=== PATIENT | female | born 1945 | race Caucasian/White ===

== ENCOUNTER 2021-01-14 10:38 | Inpatient (IN) | payer MEDICARE, BC ==
[~2021-01-14] VITALS: Ht 160 cm; Wt 110.0 kg
[~2021-01-14 10:38] MED LIST: ALTACE 1.25MG1.25 MG PO; ALTACE10 MG PO; AMBIEN 10MG10 MG PO; AMBIEN 5MG TABLE5 MG PO; BIRTH CONTROL; BUPROPION HCL75 MG PO; HCTZ12.5TAB PO; LASIX 20MG TABL20 MG PO; LIPITOR 10MG10 MG PO; LIPITOR20 MG PO; LORTAB 5/500 501 TAB PO; LORTAB 7.5/5001 TAB; MULTIPLE VITAMI1 TA5 PO; NEURONTIN100 MG/CAP PO; ONE DAILY1 TA2 PO; PHENERGAN 25 TA25 MG; PRILOSEC 20MG20 MG PO; PROMETHAZINE12.5 M5 PO; SENNA-LAX8.6 MG PO; SYNTHROID 0.0.025 MG PO; SYNTHROID0.05 MG/TA PO; TYLENOL 325MG325 MG PO; VICODIN PO; VITAMIN D; VITAMIN D2000 I1 PO; VOLTAREN SR25 MG/TAB PO; WELLBUTRIN 75MG75 MG PO
--- NOTE | 2021-01-17 15:24 | NUR ---
Report from [place] nurse. In anticipation of patietn arrival air matress applied to bed.
[2021-01-17 16:17] VITALS: BP 157/59; PULSE 80; TEMP 100.2
[2021-01-17] MEDS ORDERED: FISH OIL 500 M1 EAC1 PO (16:21)
[2021-01-17] MEDS ORDERED: CALCIUM CARBON650 M2 PO (16:23)
[2021-01-17] MEDS ORDERED: TUMS500 MG PO (16:28)
[2021-01-17] MEDS ORDERED: RIFADIN300 MG PO (16:29)
[2021-01-17] MEDS ORDERED: ISONIAZID PO (16:29)
[2021-01-17] MEDS ORDERED: RIFAMPIN PO (16:29)
[2021-01-17] MEDS ORDERED: SYNTHROID0.088 MG/T PO (16:31)
[2021-01-17] MEDS ORDERED: ESTRACE0.5 MG PO (16:31)
[2021-01-17] MEDS ORDERED: VTAMINC250TA (16:38)
[2021-01-17] MEDS ORDERED: VITAMIN D31000 IU PO (16:39)
[2021-01-17] MEDS ORDERED: MAG-OX 400400 MG/TAB PO (16:41)
[2021-01-17] MEDS ORDERED: B COMPLEX #11 TA1 PO (16:43)
[2021-01-17] MEDS ORDERED: NORVASC 10MG10 MG PO (16:44)
[2021-01-17] MEDS ORDERED: ASPIRIN 81M81 MG/TA2 PO (16:44)
[2021-01-17] MEDS ORDERED: PERCOCET 325 MG1 TA2 PO (16:45)
[2021-01-17] MEDS ORDERED: MIRALAX PA17 GM/Dose PO (16:46)
[2021-01-17] MEDS ORDERED: CUBICIN 500MG500 MG IV (16:47)
[2021-01-17] MEDS ORDERED: GENTEAL MILD 1515 M1 OP (16:55)
--- NOTE | 2021-01-17 17:00 | NUR ---
Patient is lying in bed, temperature is in the 100. Patient reports pain of 7 out of 10 in her right knee. No nausea or vomiting. Patient has multiple areas of redness and scaling in the skin foldings of the abdomen and groin. She has a pressure ulcer in the sacral area. She had a bowel movement in the morning. No other needs at the moment. Call ligth within reach.
[2021-01-17 19:28] VITALS: BP 146/56; PULSE 84; TEMP 99.7
[2021-01-17 19:45] LABS: URIC ACID 9.4 mg/dL (2.5-6.2)
[2021-01-17 20:02] LABS: THYROID STIMULATING HORMONE 2.17 uIU/mL (0.465-4.680)
--- NOTE | 2021-01-17 21:39 | NUR ---
pt reports feeling itchy on her back, no rash noted did give her percocet and antibotic tonight will call collette bustillos for orders. sukhjinder ordered. montoring, pt does deny soa or any other alergic reaction symptoms.
--- NOTE | 2021-01-17 23:38 | NUR ---
ALERT AND OX4. DENIES SOA, CHEST PAIN OR DIZZY. DID REPORT ITCHING TO BACK AFTER MED PASS. NO RASH OR MONIKA. DID STATE SHE IS VERY SENSITIVE TO NEW LAUDRY SOAPS. PM MEDS GIVEN ALONG PRNS.POC DISCUSSED WILL BE NPO AT MIDNIGHT. NEEDS MET
[2021-01-17 23:50] VITALS: BP 127/61; PULSE 63; TEMP 98.1
--- NOTE | 2021-01-18 00:40 | NUR ---
NO RASH NOTED, STATES BENEDRYL HELPED W ITCHING. NEEDS MET. RESTING W EYES CLOSED, RESP EVEN AND UNLABORED
[2021-01-18 01:05] LABS: COLLECTION METHOD IN
[2021-01-18 01:13] LABS: BUDDING YEAST Present /hpf; PH 6 (5-8); SQUAMOUS EPITHELIAL 0-2 /hpf; URINE APPEARANCE Cloudy; URINE BACTERIA Occasional /hpf; URINE BILIRUBIN Negative (NEGATIVE); URINE BLOOD 3+ (NEGATIVE); URINE COLOR Yellow; URINE GLUCOSE Negative (NEGATIVE); URINE KETONE Negative (NEGATIVE); URINE LEUKOCYTE ESTERASE 3+ (NEGATIVE); URINE NITRATE Negative (NEGATIVE); URINE PROTEIN(semi-quant) 2+ (NEGATIVE); URINE RBC >50 /hpf; URINE UROBILINOGEN Negative (NEGATIVE)
--- NOTE | 2021-01-18 02:57 | NUR ---
REPORTED URINE RESULTS TO [facility], WILL PLACE ORDERS.
[2021-01-18 04:21] VITALS: BP 158/60; PULSE 70; TEMP 98.6
--- NOTE | 2021-01-18 05:12 | NUR ---
NPO SINCE 12. ROCEPHIN FOR UTI STARTED. EXPLAINED NEW MED TO PT. NEEDS MET.
[2021-01-18 07:06] LABS: MEAN CELL VOLUME 96 fl (80.0-100.0); MEAN CORPUSCULAR HGB CONC 33 g/dl (33.0-37.0); MEAN PLATELET VOLUME 9.3 fl (7.4-10.4); PLATELET COUNT 253 K/mm3 (130-400); RED BLOOD COUNT 2.44 M/mm3 (4.10-5.30); REDCELL DISTRIBUTION WIDTH-CV 12.1 % (11.5-14.5)
[2021-01-18 07:11] LABS: HEMATOCRIT 23.4 % (37.0-47.0); HEMOGLOBIN 7.7 g/dl (12.5-16.0); MEAN CORPUSCULAR HEMOGLOBIN 32 pg (27.0-31.0)
[2021-01-18 07:21] LABS: CALCIUM 7.9 mg/dL (8.4-10.2); CREATININE, serum 1.85 (0.52-1.25); MAGNESIUM 3.4 mg/dL (1.6-2.3); POTASSIUM 4.4 mmol/L (3.4-5.0)
[2021-01-18 08:00] VITALS: BP 136/50; PULSE 69; TEMP 99.1
--- NOTE | 2021-01-18 08:00 | NUR ---
Patient is lying in bed, alert and oriented x 4, VS stable, pain reported as 7 or 8 our of a scale of 10. Oxicodone provided. No nausea or vomiting. Patient asks about food intake but NPO for possible surgery. No further needs at the moment. Call light within reach. .
[2021-01-18 08:06] LABS: BAND 4 % (0-10); EOSINOPHIL 10 % (0-4); LYMPHOCYTE 6 % (20.0-51.0); NEUTROPHILS 72 % (42.0-75.2); PLATELET ESTIMATE NORMAL (NORMAL)
--- NOTE | 2021-01-18 09:41 | NUR ---
SW attended clinical rounds. The patient's sodium is low. The hospitalist would like to hold off on surgery today. REGINALDO then met with the patient to discuss discharge plan. The patient transferred to our hospital from [facility]. She states that she has been there for around a week. Before SB, the patient was living alone in [place]. She states that all her family is in [place]. She reports that she was independent with ADLs before hospitalization and has a cane and walker. The patient's PCP is Dr. Mayra Dueñas and she receives her medications from [facility]. The patient does not have a DPOA-HC, but she reports that she does have one completed and that [facility] should have a copy of it. She reports that her friend, Verenice Jae (ph#[phone]), is her DPOA-HC. The patient states that she would like to return back to [facility] upon discharge. REGINALDO informed her of the different facilities around [place] and discussed having a second preference in case [facility] does not have a bed on day of d/c. The patient would prefer to stay in [place] and was open for REGINALDO to send referrals to the two other facilities in [place]. REGINALDO contacted and faxed updates to Gracie at [facility]. [facility] is aware that the patient would like to come back and they would like to see how the patient does after surgery. REGINALDO contacted and faxed referrals to [facility] and [facility]. Awaiting screens. REGINALDO contacted [facility] and requested a copy of the patient's DPOA-HC. REGINALDO received the DPOA-HC, via fax. REGINALDO placed the document in the patient's chart. The patient's DPOA-HC is Verenice Rowe. The alternate is her other friend, Isi Yao (ph#[phone]). REGINALDO attempted to contact and update Verenice. SW left her a voicemail. *Discharge plan: [facility] or SNF* attempted to contact and update the patient's friend
--- NOTE | 2021-01-18 10:00 | NUR ---
Patient is resting in bed, looks lethargic. Lasix was administered as prescribed. There is some blood in the castaneda catheter. Skin in the abdomen was cleaned and applied the medication.
--- NOTE | 2021-01-18 10:43 | NUR ---
NEPHROLOGY AT BEDSIDE, SEE ORDERS.
--- NOTE | 2021-01-18 11:28 | NUR ---
URINE COLLECTED AND SENT TO LAB PER ORDERS.
[2021-01-18 12:00] VITALS: BP 140/56; PULSE 69; TEMP 98.7
--- NOTE | 2021-01-18 12:44 | NUR ---
VISITED WITH AND SURGERY IS NOW PENDING THUR. SEE DIET ORDER.
[2021-01-18 15:39] VITALS: BP 124/52; PULSE 64; TEMP 98.8
[2021-01-18 16:24] LABS: CALCIUM 7.9 mg/dL (8.4-10.2); CREATININE, serum 1.92 (0.52-1.25); POTASSIUM 4.2 mmol/L (3.4-5.0)
[2021-01-18 16:31] LABS: FOLATE (FOLIC ACID) 16.4 ng/mL (2.0-20.0)
--- NOTE | 2021-01-18 17:20 | NUR ---
VIJAY AT BEDSIDE AND IS REQUESTING TO VISIT WITH ABOUT PLAN OF CARE. CAME DOWN AND VISITED WITH FRIEND, PER THE PATIENT'S REQUEST. PATIENT STATUS UPDATE GIVEN
[2021-01-18 17:36] LABS: PROCALCITONIN 0.31 ng/mL (0.00-0.09)
[2021-01-18 19:40] VITALS: BP 147/55; PULSE 82; TEMP 99.4
--- NOTE | 2021-01-18 23:09 | NUR ---
ALERT AND OX4. APPEARS TO BE MORE TIRED TONIGHT THAN LAST. PAIN IS CONTROLLED W PERCOCET. PM MEDS GIVEN. MANRIQUEZ CATH TO DD. JANN CARE, LOTION AND POWERED PER ORDER TO PANUS, EXCORATED AREAS. STAGE II TO BOTTOM, DSG C/D/I. POC DISCUSSED SURG POSSIBLY SUNDAY NOW.
[2021-01-18 23:46] VITALS: BP 146/70; PULSE 69; TEMP 99.9
[2021-01-19 04:27] VITALS: BP 149/57; PULSE 70; TEMP 100.1
--- NOTE | 2021-01-19 05:41 | NUR ---
RESTED THROUGH THE NIGHT WITHOUT INCIDENT. AM LABS DRAW FROM PORT A CATH. LOW GRADE FEVER THIS AM. NEEDS MET.
--- NOTE | 2021-01-19 06:27 | NUR ---
PT MEDICATED THIS AM. REFUSES TO DRINK GATORADE, EXPLAINED ON FREE WATER FLUID RESTRICTION BUT STILL REFUSED.
[2021-01-19 06:41] LABS: MEAN CELL VOLUME 96 fl (80.0-100.0); MEAN CORPUSCULAR HGB CONC 32 g/dl (33.0-37.0); MEAN PLATELET VOLUME 9.3 fl (7.4-10.4); PLATELET COUNT 257 K/mm3 (130-400); RED BLOOD COUNT 2.46 M/mm3 (4.10-5.30); REDCELL DISTRIBUTION WIDTH-CV 12.1 % (11.5-14.5)
[2021-01-19 06:46] LABS: CALCIUM 8.1 mg/dL (8.4-10.2); CREATININE, serum 1.92 (0.52-1.25); PHOSPHOROUS 5.7 mg/dL (2.5-4.5); POTASSIUM 4.4 mmol/L (3.4-5.0)
[2021-01-19 06:47] LABS: HEMATOCRIT 23.6 % (37.0-47.0); HEMOGLOBIN 7.5 g/dl (12.5-16.0); MEAN CORPUSCULAR HEMOGLOBIN 30 pg (27.0-31.0)
[2021-01-19 07:58] LABS: BAND 5 % (0-10); BASOPHIL 1 % (0-2); EOSINOPHIL 7 % (0-4); LYMPHOCYTE 12 % (20.0-51.0); METAMYELOCYTE 2 % (0-0); NEUTROPHILS 71 % (42.0-75.2); PLATELET ESTIMATE NORMAL (NORMAL)
[2021-01-19 08:00] VITALS: BP 134/48; PULSE 74; TEMP 98.9
--- NOTE | 2021-01-19 08:00 | NUR ---
Patient is resting in bed after hygiend provide by [employer], vital signs stable, in 1.5 l of oxygen with nasal canula. Reports pain 8 out of 10 in her right knee. Patient is receiving medication according to orders. No nausea or vomiting. Refuse to eat breakfast. Lack of appetite. Continue with itching all around the body. Benadryl provided as requested. Patient reports dificulty to sleep. Dressing change in her pressure ulcer (allevine). Patient was repositioned. No further needs at the moment. Call light within reach.
[2021-01-19 11:36] VITALS: BP 152/72; PULSE 75; TEMP 99.5
--- NOTE | 2021-01-19 14:18 | NUR ---
REGINALDO faxed updates to [facility], [facility], and [facility].
[2021-01-19 16:00] VITALS: BP 150/51; PULSE 74; TEMP 98.8
--- NOTE | 2021-01-19 16:36 | NUR ---
Patient is resting in bed. Reports pain 8 out of 10. Percoset provided. No further needs right now. Call light within reach.
--- NOTE | 2021-01-19 17:35 | NUR ---
Pt has had minimal complaints throughout the day. She did not eat much, stated she does not have an appetite. She has refused us repositioning her. Pillows pushed under her as much as possible to try and get her weight off her bottom. Maria Elena area and groin cleaned and applied new desenex.
--- NOTE | 2021-01-19 19:30 | NUR ---
RECEIVED CHANGE OF SHIFT REPORT FROM DAY SHIFT NURSE. CONTACT ISOLATION CONTINUES. PATIENT RESTING WITH EYES CLOSED IN BED.
[2021-01-19 19:52] VITALS: BP 132/55; PULSE 69; TEMP 99.6
--- NOTE | 2021-01-19 20:00 | NUR ---
PATIENT REFUSES TO BE REPOSITIONED. MANRIQUEZ IN PLACE. PORTACATH ACCESSED WITH PORT FLUSHING WITH NO PROBLEMS. ON ROOM AIR. DENIES ANY NEEDS AT THIS TIME. NO ACTIVE MOVEMENT OF BLE BY PATIENT, ABLE TO MOVE BUE WITH NO PROBLEMS. HEEL BOOTS IN PLACE TO BOTH FEET.
[2021-01-20] VITALS (14 sets, daily range): BP systolic 133–157; BP diastolic 50–72; PULSE 71–80; TEMP 98.7–100.4
[2021-01-20 07:14] LABS: MEAN CELL VOLUME 95 fl (80.0-100.0); MEAN CORPUSCULAR HGB CONC 32 g/dl (33.0-37.0); MEAN PLATELET VOLUME 9.6 fl (7.4-10.4); PLATELET COUNT 264 K/mm3 (130-400); RED BLOOD COUNT 2.54 M/mm3 (4.10-5.30); REDCELL DISTRIBUTION WIDTH-CV 12.1 % (11.5-14.5)
[2021-01-20 07:15] LABS: HEMATOCRIT 24.2 % (37.0-47.0); HEMOGLOBIN 7.8 g/dl (12.5-16.0); MEAN CORPUSCULAR HEMOGLOBIN 31 pg (27.0-31.0)
[2021-01-20 07:24] LABS: CALCIUM 8.4 mg/dL (8.4-10.2); CREATININE, serum 1.89 (0.52-1.25); POTASSIUM 4.2 mmol/L (3.4-5.0)
[2021-01-20 07:52] LABS: BAND 5 % (0-10); EOSINOPHIL 8 % (0-4); LYMPHOCYTE 9 % (20.0-51.0); NEUTROPHILS 72 % (42.0-75.2); PLATELET ESTIMATE NORMAL (NORMAL)
--- NOTE | 2021-01-20 13:07 | NUR ---
Pt off the floor for surgery
[2021-01-20] MEDS ORDERED: PERCOCET 325 MG1 TA2 PO (14:29)
--- NOTE | 2021-01-20 16:17 | NUR ---
SW attended clinical rounds. The patient is to have surgery today and will then transfer to the ICU. The patient is to be here through the weekend. REGINALDO notified Gracie at [facility] and faxed updates to [facility], [facility], and [facility].
--- NOTE | 2021-01-20 17:04 | NUR ---
Pt continues to be off the floor in surgery
--- NOTE | 2021-01-20 17:34 | NUR ---
Pt just arrived back from [place]. She is alert and oriented. Has pain complaints in her right knee. She was recently given some IV pain medication in [place]. Pt does fall asleep after answering my questions. Call light within reach, will continue to monitor
--- NOTE | 2021-01-20 18:07 | NUR ---
Pt having complaints of pain, PRN given. Attempted to move patient to replace dressing on coccyx wound, but pt refused. Informed pt that we need to be able to reposition her and keep a dressing on her bottom so that it does not get worse. Pt stated that she knows, but that she is not moving right now. Pt also refusing anything to eat. VSS, call light within reach
--- NOTE | 2021-01-20 21:15 | NUR ---
Pt. laying in bed. Pt. is A&OX3,assessment complete. Central line to rt. sbuclavian. Pt. reports pain at a 8 on pain scale, gave pain meds per orders. castaneda catheter to DD, clear yellow urine noted. Dressing to RLE CDI ginger dressing and leg brace. Pt. denies further needs, call light within reach.
[2021-01-21] VITALS (12 sets, daily range): BP systolic 105–130; BP diastolic 41–56; PULSE 68–85; TEMP 98.2–102.6
--- NOTE | 2021-01-21 05:10 | NUR ---
Temp of 102.6 reported to this nurse from TRANSPORTATION COORDINATOR. Gave percocet d/t pt. also reports pain at a 5 on pain scale. MODESTA Johnson notified. No new orders at this time.
[2021-01-21 07:15] LABS: MEAN CELL VOLUME 95 fl (80.0-100.0); MEAN CORPUSCULAR HGB CONC 33 g/dl (33.0-37.0); MEAN PLATELET VOLUME 9.2 fl (7.4-10.4); PLATELET COUNT 263 K/mm3 (130-400); RED BLOOD COUNT 2.41 M/mm3 (4.10-5.30); REDCELL DISTRIBUTION WIDTH-CV 12.4 % (11.5-14.5)
[2021-01-21 07:19] LABS: HEMATOCRIT 22.9 % (37.0-47.0); HEMOGLOBIN 7.5 g/dl (12.5-16.0); MEAN CORPUSCULAR HEMOGLOBIN 31 pg (27.0-31.0)
[2021-01-21 07:35] LABS: CALCIUM 8.1 mg/dL (8.4-10.2); CREATININE, serum 2.2 (0.52-1.25); MAGNESIUM 3.2 mg/dL (1.6-2.3); POTASSIUM 4.8 mmol/L (3.4-5.0)
--- NOTE | 2021-01-21 10:48 | NUR ---
Headlight Assembler faxed clinical updates to [facility], [facility], and [facility].
[2021-01-21 11:12] LABS: HEMATOCRIT 20.2 % (37.0-47.0); HEMOGLOBIN 6.5 g/dl (12.5-16.0)
[2021-01-21 13:36] LABS: HEMATOCRIT 21.5 % (37.0-47.0)
--- NOTE | 2021-01-21 14:40 | NUR ---
PATIENT WAS SCREAMING OUT WITH THERAPY AND REQUESTED SOMETHING FOR PAIN. BEDSIDE NURSE UNAVAIALBLE, GAVE PRN PERCOCET, TWO TABS AND PRN IV MORPHINE FOR SEVERE PAIN. PATIENT WAS VERY THANKFUL. WILL MONITOR.
[2021-01-22] VITALS (7 sets, daily range): BP systolic 112–133; BP diastolic 41–59; PULSE 68–75; TEMP 97.8–99.7
--- NOTE | 2021-01-22 05:08 | NUR ---
Radha had 1 unit of PRBC last night for her hemoglobin level of 7.1. She tolerated the transfusion without any complains. Her temp was between 99.1 to 99.4. She's been febrile since yesterday. She refused her Tylenol last night and trefused to get turn evry 2 hours. She have ice in her right knee over the immobilizer. She asked for Benadryl and since she had it she was slept all night. She asked for pain meds at 0500am already the first pain meds in my shift that she got. Otherwise whe is calm and comfortable in bed. She have blood draw for hemoglobin this morning.
[2021-01-22 07:04] LABS: CALCIUM 7.7 mg/dL (8.4-10.2); CREATININE, serum 2.46 (0.52-1.25); MAGNESIUM 3.1 mg/dL (1.6-2.3); POTASSIUM 4.5 mmol/L (3.4-5.0)
[2021-01-22 07:18] LABS: MEAN CELL VOLUME 97 fl (80.0-100.0); MEAN CORPUSCULAR HGB CONC 32 g/dl (33.0-37.0); MEAN PLATELET VOLUME 9.5 fl (7.4-10.4); PLATELET COUNT 237 K/mm3 (130-400); RED BLOOD COUNT 2.28 M/mm3 (4.10-5.30); REDCELL DISTRIBUTION WIDTH-CV 13.1 % (11.5-14.5)
[2021-01-22 07:25] LABS: HEMATOCRIT 22.1 % (37.0-47.0); HEMOGLOBIN 7.1 g/dl (12.5-16.0); MEAN CORPUSCULAR HEMOGLOBIN 31 pg (27.0-31.0)
[2021-01-22 08:06] LABS: BAND 2 % (0-10); EOSINOPHIL 10 % (0-4); HYPOCHROMIA 2+; LYMPHOCYTE 7 % (20.0-51.0); MYELOCYTE 1 % (0-0); NEUTROPHILS 72 % (42.0-75.2); PLATELET ESTIMATE NORMAL (NORMAL)
--- NOTE | 2021-01-22 19:15 | NUR ---
Bedside shift report received, assumed care for openstack developer. Assessmnet complete. A&Ox3. Denies nausea. States she gets short of breath with actiivty but that is baseline. Rating pain 6/10 on pain scale to right knee-described as constant throbbing-percocet [address] order. Repositioned in bed with pillow support. Right knee dressing CDI-bulky white/ginger. Elevated on pillow. Fresh ice pack applied. Heel protector on left foot. Refusing SCDs. Plan of care discussed for this shift to inlcude HS meds/antibiotics/pain control/repositioning/calling for questions/concerns. Verbalizes understanding. Call light in reach. Will monitor.
--- NOTE | 2021-01-22 21:00 | NUR ---
Resting eyes closed-audible snore. NO s/s of pain or discomfort noted. Will monitor.
[2021-01-23] VITALS (12 sets, daily range): BP systolic 111–141; BP diastolic 45–62; PULSE 66–88; TEMP 97.4–99
--- NOTE | 2021-01-23 00:45 | NUR ---
During rounds complained of pain to right knee-rating pain 6/10 on pain scale-described as throbbing. Percocet given per dr hernandez.
--- NOTE | 2021-01-23 05:22 | NUR ---
Slept most of shift. Received percocet x3 for pain to right knee. Refused SCDs. Fresh ice applied PRN this shift. Repositioned every Q2H. Central line to right subclavian flushes well with good blood return. Tolerating diet. Adequate output to castaneda cath-clear yellow. Denies current needs. Call light in reach. Will monitor.
[2021-01-23 06:32] LABS: MEAN CELL VOLUME 96 fl (80.0-100.0); MEAN CORPUSCULAR HGB CONC 32 g/dl (33.0-37.0); MEAN PLATELET VOLUME 9.2 fl (7.4-10.4); PLATELET COUNT 249 K/mm3 (130-400); RED BLOOD COUNT 2.19 M/mm3 (4.10-5.30); REDCELL DISTRIBUTION WIDTH-CV 13.2 % (11.5-14.5)
[2021-01-23 06:45] LABS: CALCIUM 7.9 mg/dL (8.4-10.2); CREATININE, serum 2.52 (0.52-1.25); POTASSIUM 4.6 mmol/L (3.4-5.0)
[2021-01-23 06:47] LABS: HEMATOCRIT 21.1 % (37.0-47.0); HEMOGLOBIN 6.7 g/dl (12.5-16.0); MEAN CORPUSCULAR HEMOGLOBIN 31 pg (27.0-31.0)
--- NOTE | 2021-01-23 06:51 | NUR ---
Dr Jimenez notified of critical lab value-Hem of 6.7
[2021-01-23 07:29] LABS: BAND 1 % (0-10); EOSINOPHIL 8 % (0-4); LYMPHOCYTE 13 % (20.0-51.0); NEUTROPHILS 74 % (42.0-75.2)
[2021-01-23 07:30] LABS: HYPOCHROMIA 2+
[2021-01-23 12:22] LABS: HEMATOCRIT 23.6 % (37.0-47.0); HEMOGLOBIN 7.4 g/dl (12.5-16.0)
--- NOTE | 2021-01-23 20:00 | NUR ---
Bedside report received, assumed care for retail shift leader. Assessment complete. A&Ox3. Denies nausea. Rating pain 6/10 to right knee-medicated with oxycodone per order. States she is also having pain in right chest with respirations. Lung sounds diminished on right side and wheezes ins/exp on left. States the pain started a few hours ago. Denies increase in shortess of breath O2 remains at 3L/NC. VS are stable. Dressing to right knee CDI-bulky white/ginger. Fresh ice pack applied. Archer cath with clear yellow urine. Refusing SCDs. Repositioned with pillow support. Will notify provider of change in assessment. Call light in reach. Will monitor.
--- NOTE | 2021-01-23 20:10 | NUR ---
MODESTA Johnson Hospitalist notified of patients reports of right sided chest pain with breathing. States it started a few hours ago. New orders received and initiated. Lab, Radiology and RT notified of STAT orders. Lab at bedside.
--- NOTE | 2021-01-23 20:16 | NUR ---
Radiology present for chest x ray.
[2021-01-23 20:29] LABS: CALCIUM 7.8 mg/dL (8.4-10.2); CREATININE, serum 2.49 (0.52-1.25); POTASSIUM 4.4 mmol/L (3.4-5.0)
--- NOTE | 2021-01-23 21:20 | NUR ---
New orders received for Lasix 40mg IV x1 now due to results of chest x ray. Given now. WIll monitor output.
--- NOTE | 2021-01-23 23:45 | NUR ---
STAT MRSA nasal swab sent to lab per dr hernandez.
[2021-01-24] VITALS (187 sets, daily range): BP systolic 104–131; BP diastolic 40–66; PULSE 59–100; TEMP 97.8–99.2; O2SAT 65–100
--- NOTE | 2021-01-24 03:12 | NUR ---
Patient noted to be gasping for air, grunting, pale and diaphoretic after receiving a breathing treatment. This nurse heard at nurses station-O2 saturation in the mid 40s-previously on 2L/NC with saturations in the mid to high 90s. Oxymask applied @15L and Hospitalist Elizabeth BYERS notifed and immediately at bedside. Patient bagged by Elizabeth for approx 8min with O2 saturations in the 90s. STAT orders received-respiratory, lab and radiology notified. This nurse suctioned secretions from mouth with scant amount of thick clear fluid. hairspring fabrication supervisor notified of need for ICU bed. 0325-Respiratory at bedside-bipap applied and ABG drawn. Lab at bedside for STAT lab draw. Currently on bipap with O2 saturations in the mid to high 90s. 0355-Radiology at bedside for STAT chest x ray. Continues to have O2 saturations in the mid to high 90s on bipap. 0415-Report called to [facility] ICU nurse. 0425-Transported to ICU.
[2021-01-24 03:49] LABS: MEAN CELL VOLUME 97 fl (80.0-100.0); MEAN CORPUSCULAR HGB CONC 32 g/dl (33.0-37.0); MEAN PLATELET VOLUME 8.7 fl (7.4-10.4); RED BLOOD COUNT 2.96 M/mm3 (4.10-5.30); REDCELL DISTRIBUTION WIDTH-CV 13.4 % (11.5-14.5)
[2021-01-24 03:52] LABS: HEMATOCRIT 28.8 % (37.0-47.0); HEMOGLOBIN 9.3 g/dl (12.5-16.0); MEAN CORPUSCULAR HEMOGLOBIN 31 pg (27.0-31.0); PLATELET COUNT 355 K/mm3 (130-400)
[2021-01-24 04:02] LABS: CALCIUM 8.2 mg/dL (8.4-10.2); CREATININE, serum 2.47 (0.52-1.25); POTASSIUM 4.4 mmol/L (3.4-5.0)
--- NOTE | 2021-01-24 04:15 | NUR ---
Received report from RADHA Aragon.
[2021-01-24 04:16] LABS: TROPONIN-I 0.015 ng/mL (0.000-0.035)
[2021-01-24 04:26] LABS: ARTERIAL BLOOD GAS PCO2 37.2 mmHg (35-45); ARTERIAL BLOOD GAS pH 7.34 (7.35-7.45)
[2021-01-24 04:27] LABS: ARTERIAL BLOOD GAS BASE EXCESS -5.8 (-2-2); ARTERIAL BLOOD GAS HCO3 19.4 meq/L (22-26); ARTERIAL BLOOD GAS PO2 187.9 mmHg (80-100)
[2021-01-24 04:28] LABS: ARTERIAL BLD GAS O2 SATURATION 99.3 % (92-100)
--- NOTE | 2021-01-24 04:40 | NUR ---
Patient arrives to ICU room 7 via medical bed. Patient transferred to ICU bed with assistance of RADHA Aragon, Aurelia, oracle data warehouse developer, and RT Antione. She arrives receiving BiPap at 18/8 on 40% FiO2; tolerating well. All initial vitals within normal limits. Incontinent care provided. Elizabeth aware of patient's arrival. No further orders at this time.
[2021-01-24 04:52] LABS: BAND 10 % (0-10); LYMPHOCYTE 31 % (20.0-51.0); METAMYELOCYTE 3 % (0-0); MYELOCYTE 2 % (0-0); NEUTROPHILS 51 % (42.0-75.2); PLATELET ESTIMATE NORMAL (NORMAL)
[2021-01-24 06:01] LABS: ARTERIAL BLOOD GAS HCO3 21.8 meq/L (22-26); ARTERIAL BLOOD GAS PCO2 37.8 mmHg (35-45); ARTERIAL BLOOD GAS pH 7.38 (7.35-7.45)
[2021-01-24 09:50] LABS: PATHOLOGY DIFF REVIEW OK
[2021-01-24 11:09] LABS: CREATININE, serum 2.55 (0.52-1.25); POTASSIUM 4.9 mmol/L (3.4-5.0)
--- NOTE | 2021-01-24 13:24 | NUR ---
PT transported to medical via bed. Nurse RADHA Hall assumed care at this time
[2021-01-24] MEDS ORDERED: DULCOLAX STOOL100 MG PO (16:39)
[2021-01-24] MEDS ORDERED: LOVENOX 4040 MG/0.4 SQ (16:39)
[2021-01-24] MEDS ORDERED: OSCAL 500 TAB500 MG PO (16:42)
--- NOTE | 2021-01-24 18:26 | NUR ---
Pt arrived to the floor into room 358, she is A/O x4. Her breathing is even and unlabored on RA. Pt denies SOB, bases bilaterally diminished. No pain at this time. Single lumen subclavian flushes without complications, some bruising around site. Pt's RLE in ginger wrap and brace, elevated and ice applied. Boot in place to LLE. Gianni MENENDEZ. No needs at this time.
--- NOTE | 2021-01-24 23:32 | NUR ---
Patient assessed around 1999. Alert and oriented x 4, and able to make needs known. Reported level 7 pain to left knee. Given PRN Roxicodone per orders. Single lumen central line to right subclavian. Denies SOB and dyspnea. LS CTA in upper lobes, diminished in lower. Respirations even and unlabored. SPO2 89% on room air. Refused to wear BIPAP during assessment, but did allow this nurse to place oxygen on her at 2 L/min via NC. SPO2 increased to 96%. HRR. Capillary refill less than 3 seconds. Non-tenting skin turgor. BSAx4. Abomen soft and non-tender. Indwelling castaneda catheter patent, and draining clear yellow urine via dependent drainage. Boot to left foot. ISAIAS/Brace to right knee CDI. Mepilex to bottom CDI. Excoriation to adominal and groin folds. Resting in bed with call light within reach.
[2021-01-25] VITALS (7 sets, daily range): BP systolic 111–137; BP diastolic 57–76; PULSE 60–89; TEMP 97.4–101.3
--- NOTE | 2021-01-25 05:40 | NUR ---
Patient has been resting in bed wearing BIPAP. Denies having pain and discomfort at this time. Only needed Roxicodone once, at beginning of shift. Voices no questions, needs, or concerns at this time. Call light is within reach.
[2021-01-25 06:57] LABS: MEAN CELL VOLUME 98 fl (80.0-100.0); MEAN CORPUSCULAR HGB CONC 32 g/dl (33.0-37.0); MEAN PLATELET VOLUME 9.1 fl (7.4-10.4); PLATELET COUNT 279 K/mm3 (130-400); RED BLOOD COUNT 2.41 M/mm3 (4.10-5.30); REDCELL DISTRIBUTION WIDTH-CV 13.3 % (11.5-14.5)
[2021-01-25 06:58] LABS: HEMATOCRIT 23.6 % (37.0-47.0); HEMOGLOBIN 7.6 g/dl (12.5-16.0); MEAN CORPUSCULAR HEMOGLOBIN 32 pg (27.0-31.0)
[2021-01-25 06:59] LABS: CREATININE, serum 2.7 (0.52-1.25); POTASSIUM 4.4 mmol/L (3.4-5.0)
[2021-01-25 07:31] LABS: BAND 10 % (0-10); EOSINOPHIL 16 % (0-4); LYMPHOCYTE 12 % (20.0-51.0); METAMYELOCYTE 2 % (0-0); NEUTROPHILS 59 % (42.0-75.2); PLATELET ESTIMATE NORMAL (NORMAL)
--- NOTE | 2021-01-25 09:02 | NUR ---
Pt assessment complete. Pt laying in bed upon entry, she is A/O x4. Her breathing is even and unlabored on 2L O2 via NC. Pt denies SOB. No pain at this time. RLE in immobilizer, dressing CDI. LLE in boot. Gianni MENENDEZ. Pt refusing breakfast at this time, wants to eat later. No further needs at this time. Call light within reach.
--- NOTE | 2021-01-25 16:18 | NUR ---
REGINALDO staffed with the clinical team. The patient may be able to d/c in the next day or two. REGINALDO attempted to update Gracie at [facility]. SW left her a voicemail and faxed her updates. REGINALDO faxed updates to [facility] and [facility]. REGINALDO contacted and updated the patient's DPOA-HC, Verenice Rowe. Verenice is hopeful for ambulance transfer, due to the patient's condition. REGINALDO informed her that with going to a lower level of care, Medicare typically does not cover for an ambulance ride. They will have the patient sign an ABN. Verenice verbalized understanding. She states that their preferences for post-acute rehab is 1) [facility] 2) [facility] 3) [facility]. SW to continue to follow.
--- NOTE | 2021-01-25 19:28 | NUR ---
Pt rested in bed all day, very little movement on her own. Repositioned several times. Gianni MENENDEZ. Brace removed from right knee and bandage changed to aquacell per DELMI Small. Pt remained on 2L O2 via NC. No needs at this time.
[2021-01-26 03:45] VITALS: BP 154/64; PULSE 83; TEMP 100
--- NOTE | 2021-01-26 05:40 | NUR ---
Patient rested comfortably throughout shift, no c/o pain, dressing to R knee c/d/i, VS stable, castaneda draining per gravity w/o issue, patient teach back re: fluid restriction, antibiotic use. o2@2L per NC in use.
[2021-01-26 06:51] LABS: MEAN CELL VOLUME 98 fl (80.0-100.0); MEAN CORPUSCULAR HGB CONC 32 g/dl (33.0-37.0); MEAN PLATELET VOLUME 9.3 fl (7.4-10.4); PLATELET COUNT 311 K/mm3 (130-400); RED BLOOD COUNT 2.68 M/mm3 (4.10-5.30); REDCELL DISTRIBUTION WIDTH-CV 13.5 % (11.5-14.5)
[2021-01-26 06:53] LABS: HEMATOCRIT 26.3 % (37.0-47.0); HEMOGLOBIN 8.3 g/dl (12.5-16.0); MEAN CORPUSCULAR HEMOGLOBIN 31 pg (27.0-31.0)
[2021-01-26 06:57] LABS: CALCIUM 8.4 mg/dL (8.4-10.2); CREATININE, serum 2.8 (0.52-1.25); POTASSIUM 4.1 mmol/L (3.4-5.0)
--- NOTE | 2021-01-26 06:57 | NUR ---
darron watchprince gTV, bedside shift report received from RADHA Vega
[2021-01-26 08:00] VITALS: BP 135/65; PULSE 75; TEMP 99.4
[2021-01-26 08:11] LABS: BAND 5 % (0-10); EOSINOPHIL 10 % (0-4); LYMPHOCYTE 5 % (20.0-51.0); METAMYELOCYTE 3 % (0-0); NEUTROPHILS 73 % (42.0-75.2)
[2021-01-26 08:12] LABS: PLATELET ESTIMATE NORMAL (NORMAL)
--- NOTE | 2021-01-26 09:20 | NUR ---
remains sitting up in bed, has not had breakfast and states she likes to eat later, full assessment completed, see interventions for further info, pannus was cleaned with warm water and dried well, will assist her with rolling to her side when DRY PLACER MACHINE OPERATOR available to help, denies pain or needs at this time, verbalizes she understands how to order breakfast
--- NOTE | 2021-01-26 11:20 | NUR ---
assisted onto bedpan to have a bowel movement, Erica Mac APRN in to see patient
--- NOTE | 2021-01-26 11:56 | NUR ---
had soft semi formed large bowel movement, cocyx and buttocks are both red with shearing to cocyx, unable to aspirate blood from subclavian line
[2021-01-26 11:57] VITALS: BP 166/75; PULSE 78; TEMP 98.4
--- NOTE | 2021-01-26 12:45 | NUR ---
went with RADHA Fontanez to administer cathflo, Estee was able to flush numerous times and could aspirate blood so cathflo not given
--- NOTE | 2021-01-26 14:42 | NUR ---
watching TV, had lunch and tolerated well, UA collected and to lab, Dr Anthony called to check on patinet
[2021-01-26 15:32] VITALS: BP 165/65; PULSE 79; TEMP 98.4
--- NOTE | 2021-01-26 16:45 | NUR ---
had another soft formed bowel movement, has shearing/skin tear to left buttock, and all of buttocks and cocyx is bright red and foam dressings placed, brace to right knee removed
--- NOTE | 2021-01-26 18:54 | NUR ---
bedside shift report givven to RADHA Vega
[2021-01-26 19:23] VITALS: BP 146/58; PULSE 78; TEMP 99.1
[2021-01-26 23:32] LABS: COLLECTION METHOD IN
[2021-01-26 23:50] LABS: BUDDING YEAST Present /hpf; MUCOUS Present /lpf; PH 6 (5-8); SQUAMOUS EPITHELIAL 0-2 /hpf; URINE APPEARANCE Cloudy; URINE BACTERIA Rare /hpf; URINE BILIRUBIN Negative (NEGATIVE); URINE BLOOD 1+ (NEGATIVE); URINE COLOR Yellow; URINE GLUCOSE Negative (NEGATIVE); URINE KETONE Negative (NEGATIVE); URINE LEUKOCYTE ESTERASE 3+ (NEGATIVE); URINE NITRATE Negative (NEGATIVE); URINE PROTEIN(semi-quant) 2+ (NEGATIVE); URINE RBC >50 /hpf; URINE UROBILINOGEN Negative (NEGATIVE)
[2021-01-27 00:47] VITALS: BP 135/54; PULSE 87; TEMP 99.5
[2021-01-27 05:03] VITALS: BP 153/55; PULSE 84; TEMP 98.3
--- NOTE | 2021-01-27 05:55 | NUR ---
Awake, alert, oriented x 3, able to make needs known, R leg dressing with aquacell in place, refusing repositioning with pillows, refused teaching re: skin breakdown, VS stable, castaneda draining yellow urine to bag per gravity w/o issue. Updated on plan of care.
[2021-01-27 06:56] LABS: CALCIUM 8.8 mg/dL (8.4-10.2); CREATININE, serum 2.49 (0.52-1.25); POTASSIUM 3.8 mmol/L (3.4-5.0)
[2021-01-27 06:57] LABS: MEAN CELL VOLUME 100 fl (80.0-100.0); MEAN CORPUSCULAR HGB CONC 31 g/dl (33.0-37.0); MEAN PLATELET VOLUME 9.5 fl (7.4-10.4); PLATELET COUNT 308 K/mm3 (130-400); RED BLOOD COUNT 2.59 M/mm3 (4.10-5.30); REDCELL DISTRIBUTION WIDTH-CV 13.8 % (11.5-14.5)
[2021-01-27 06:58] LABS: HEMATOCRIT 25.8 % (37.0-47.0); HEMOGLOBIN 8.1 g/dl (12.5-16.0); MEAN CORPUSCULAR HEMOGLOBIN 31 pg (27.0-31.0)
[2021-01-27 07:27] LABS: BAND 8 % (0-10); EOSINOPHIL 4 % (0-4); LYMPHOCYTE 7 % (20.0-51.0); NEUTROPHILS 78 % (42.0-75.2); PLATELET ESTIMATE NORMAL (NORMAL)
[2021-01-27 08:24] VITALS: BP 145/61; PULSE 93; TEMP 99.4
--- NOTE | 2021-01-27 11:15 | NUR ---
0700 PT RECEIVED RESTING IN BED. NO S/S OF DISTRESS NOTED. ISOLATION PRECATUION MAINTAINED 0800 PT DENIES HAVING ANY PAIN. INCENTIVE SPIROMETER AT THE BEDSIDE AND PT INSTRUCTED ON WHEN AND HOW TO USE IT. DECLAN NOTED IN PLACE. PT ENCOURAGED TO ORDERED BREAKFAST BUT STATES SHE IS NOT HUNGRY AND WILL ORDER SOMETHING WHEN SHE IS READY. PT OFFERED A SNACK AND REFUSED AT THIS TIME. 0900 MEDICATIONS ADMINISTERED ORDERED. PT VOICES NO CONCERN. WILL CONTINUE TO MONITOR.
[2021-01-27 12:03] VITALS: BP 140/53; PULSE 75; TEMP 99.5
--- NOTE | 2021-01-27 14:15 | NUR ---
REGINALDO received a voicemail from Gracie at [facility]. Gracie reports that the patient's PCP has spoken to ortho. Her PCP is concerned about taking the patient going into the weekend, due to the patient's medical complexity and would not want to have to send her back to the hospital. She also inquired about the patient going to an LTACH. REGINALDO staffed with the patient's PA. The patient's WBC continues to increase and her repeat UA was positive. The patient is going to be here through the weekend and will tentatively be able to d/c by early next week. The PA reports that the patient is more a candidate for swing bed. REGINALDO contacted and updated Gracie at [facility] on the above. Gracie reports that she will update her team and will touchbase with REGINALDO early next week. REGINALDO contacted Alma at [facility] to follow up on the referral sent there. Alma reports that she needs to check with her team and will then contact REGINALDO back. REGINALDO faxed updates to [facility] and [facility].
[2021-01-27 16:43] VITALS: BP 150/59; PULSE 77; TEMP 99.3
[2021-01-28] VITALS (7 sets, daily range): BP systolic 136–162; BP diastolic 56–67; PULSE 69–89; TEMP 97.6–99.5
[2021-01-28 07:13] LABS: HEMATOCRIT 25.9 % (37.0-47.0); HEMOGLOBIN 8.2 g/dl (12.5-16.0); MEAN CELL VOLUME 100 fl (80.0-100.0); MEAN CORPUSCULAR HEMOGLOBIN 32 pg (27.0-31.0); MEAN CORPUSCULAR HGB CONC 32 g/dl (33.0-37.0); MEAN PLATELET VOLUME 9.4 fl (7.4-10.4); PLATELET COUNT 296 K/mm3 (130-400); RED BLOOD COUNT 2.59 M/mm3 (4.10-5.30); REDCELL DISTRIBUTION WIDTH-CV 14.1 % (11.5-14.5)
[2021-01-28 07:15] LABS: CALCIUM 9.1 mg/dL (8.4-10.2); CREATININE, serum 2.4 (0.52-1.25)
[2021-01-28 07:57] LABS: EOSINOPHIL 10 % (0-4); HYPOCHROMIA 2+; LYMPHOCYTE 8 % (20.0-51.0); MYELOCYTE 3 % (0-0); NEUTROPHILS 76 % (42.0-75.2); PLATELET ESTIMATE NORMAL (NORMAL)
--- NOTE | 2021-01-28 09:45 | NUR ---
Pt awake and alert upon entry to room, no C/O pain currently. Shift assessment complete, left Pt call light in reach, bed in lowest position.
--- NOTE | 2021-01-28 14:53 | NUR ---
REGINALDO faxed updates to [facility] and [facility].
--- NOTE | 2021-01-28 15:16 | NUR ---
Alma, at [facility], reports that they are able to accept the patient.
--- NOTE | 2021-01-28 21:41 | NUR ---
pt has been ok. She refused her miralax. Will continue to monitor.
[2021-01-29 04:02] VITALS: BP 163/61; PULSE 91; TEMP 98.3
[2021-01-29 07:04] LABS: MEAN CELL VOLUME 98 fl (80.0-100.0); MEAN CORPUSCULAR HGB CONC 31 g/dl (33.0-37.0); MEAN PLATELET VOLUME 9.7 fl (7.4-10.4); PLATELET COUNT 285 K/mm3 (130-400); RED BLOOD COUNT 2.57 M/mm3 (4.10-5.30); REDCELL DISTRIBUTION WIDTH-CV 14.6 % (11.5-14.5)
[2021-01-29 07:15] LABS: CALCIUM 9.2 mg/dL (8.4-10.2); CREATININE, serum 2.31 (0.52-1.25); POTASSIUM 3.8 mmol/L (3.4-5.0)
[2021-01-29 07:18] LABS: HEMATOCRIT 25.3 % (37.0-47.0); HEMOGLOBIN 7.8 g/dl (12.5-16.0); MEAN CORPUSCULAR HEMOGLOBIN 30 pg (27.0-31.0)
[2021-01-29 07:54] VITALS: BP 148/57; PULSE 73; TEMP 99
[2021-01-29 12:04] VITALS: BP 143/58; PULSE 79; TEMP 99.2
[2021-01-29 17:40] VITALS: BP 146/59; PULSE 74; TEMP 99.4
[2021-01-29 20:04] VITALS: BP 154/57; PULSE 84; TEMP 98.5
--- NOTE | 2021-01-29 22:45 | NUR ---
Pt has been ok but a little off.Pt Stated,she didn't like the nurse and she feels the nurse did not like her.I figured she is really manupilative.Will continue to monitor.
[2021-01-29 23:28] VITALS: BP 146/60; PULSE 75; TEMP 98.7
[2021-01-30 04:29] VITALS: BP 153/55; PULSE 80; TEMP 98.5
[2021-01-30 06:58] LABS: MEAN CELL VOLUME 100 fl (80.0-100.0); MEAN CORPUSCULAR HGB CONC 31 g/dl (33.0-37.0); MEAN PLATELET VOLUME 9.7 fl (7.4-10.4); PLATELET COUNT 278 K/mm3 (130-400); RED BLOOD COUNT 2.62 M/mm3 (4.10-5.30); REDCELL DISTRIBUTION WIDTH-CV 14.8 % (11.5-14.5)
[2021-01-30 07:07] LABS: HEMATOCRIT 26.2 % (37.0-47.0); HEMOGLOBIN 8.2 g/dl (12.5-16.0); MEAN CORPUSCULAR HEMOGLOBIN 31 pg (27.0-31.0)
[2021-01-30 07:14] LABS: CALCIUM 9.3 mg/dL (8.4-10.2); CREATININE, serum 2.21 (0.52-1.25); POTASSIUM 3.9 mmol/L (3.4-5.0)
[2021-01-30 07:23] VITALS: BP 151/61; PULSE 80; TEMP 98.6
[2021-01-30 07:47] LABS: BAND 5 % (0-10); EOSINOPHIL 7 % (0-4); LYMPHOCYTE 11 % (20.0-51.0); METAMYELOCYTE 1 % (0-0); MYELOCYTE 1 % (0-0); NEUTROPHILS 67 % (42.0-75.2); PLATELET ESTIMATE NORMAL (NORMAL)
[2021-01-30 07:48] LABS: HYPOCHROMIA 2+
--- NOTE | 2021-01-30 08:00 | NUR ---
Patient laying in bed, lights off and TV on. Patient requesting that the hallway lights be dimmed. Nursing staff informed the patient that the lights cannot be dimmed during the daytime hours. VSS. IV CDI. Archer to dependent drainage. Contact precautions in place. Denies pain and discomfort. Patient refusing to be repositioned. No further needs expressed from the patient. Call light within reach.
[2021-01-30 12:37] VITALS: BP 154/61; PULSE 76; TEMP 98.6
[2021-01-30 16:00] VITALS: BP 160/67; PULSE 76; TEMP 98.8
--- NOTE | 2021-01-30 17:41 | NUR ---
Patient had an uneventful day. Refused to be repositioned. Patient is very particular on her care. VSS. IV CDI. Denies pain and discomfort. Archer dependent drainage clear yellow, intact. Contact precautions in place. No further needs expressed from the patient. Call light within reach
[2021-01-30 20:21] VITALS: BP 156/63; PULSE 84; TEMP 98.5
--- NOTE | 2021-01-30 22:19 | NUR ---
Pt has been good. BP is eleveted. Pain rated 2/10. Tylenol schedule was given. Will continue to monitor.
[2021-01-31 00:05] VITALS: BP 152/64; PULSE 80; TEMP 98.5
[2021-01-31 04:00] VITALS: BP 154/61; PULSE 79; TEMP 98.2
[2021-01-31 06:31] LABS: MEAN CELL VOLUME 99 fl (80.0-100.0); MEAN CORPUSCULAR HGB CONC 31 g/dl (33.0-37.0); MEAN PLATELET VOLUME 9.4 fl (7.4-10.4); PLATELET COUNT 317 K/mm3 (130-400); RED BLOOD COUNT 2.71 M/mm3 (4.10-5.30); REDCELL DISTRIBUTION WIDTH-CV 15.3 % (11.5-14.5)
[2021-01-31 06:32] LABS: HEMATOCRIT 26.9 % (37.0-47.0); HEMOGLOBIN 8.4 g/dl (12.5-16.0); MEAN CORPUSCULAR HEMOGLOBIN 31 pg (27.0-31.0)
[2021-01-31 06:39] LABS: CALCIUM 9.5 mg/dL (8.4-10.2); CREATININE, serum 2.28 (0.52-1.25); POTASSIUM 3.8 mmol/L (3.4-5.0)
[2021-01-31 07:19] LABS: BAND 7 % (0-10); EOSINOPHIL 4 % (0-4); LYMPHOCYTE 14 % (20.0-51.0); METAMYELOCYTE 7 % (0-0); MYELOCYTE 1 % (0-0); NEUTROPHILS 62 % (42.0-75.2); PLATELET ESTIMATE NORMAL (NORMAL)
[2021-01-31 08:24] VITALS: BP 155/57; PULSE 83; TEMP 99.3
[2021-01-31] MEDS ORDERED: FLOMAX 0.40.4 MG/CAP PO (09:14)
[2021-01-31] MEDS ORDERED: MELATIN 3 MG-11 TAB PO (09:18)
[2021-01-31] MEDS ORDERED: DESENEX TP (09:18)
[2021-01-31] MEDS ORDERED: HEPARIN SOD5000 U/ML SQ (09:20)
[2021-01-31] MEDS ORDERED: TYLENOL 325MG325 MG PO (09:21)
[2021-01-31] MEDS ORDERED: WELLBUTRIN 75MG75 MG PO (09:22)
[2021-01-31] MEDS ORDERED: CUBICIN 500MG500 MG IV (09:25)
[2021-01-31] MEDS ORDERED: MAXIPIME1 GM IV (09:27)
[2021-01-31] MEDS ORDERED: DIFLUCAN 2200 MG/100 IV (09:31)
--- NOTE | 2021-01-31 09:34 | NUR ---
Pt awake upon entry to room, no C/O pain at this time. Shift assessments complete, left Pt call light in reach, bed in lowest position.
--- NOTE | 2021-01-31 11:26 | NUR ---
REGINALDO attended clinical rounds. The patient is ready to d/c today. REGINALDO notified Gracie at [facility]. Gracie reports that they will require a doc-to-doc before they accept the patient. The provider is Dr. Dueñas. REGINALDO notified the hospitalist and provided him with Dr. Dueñas's phone number. REGINALDO met with the patient and presented and read the IM form outloud to her. The patient verbalized understanding and signed the form. REGINALDO staffed with PT. The patient has been bedbound and will likely need EMS transport. REGINALDO contacted and updated the patient's DPOA-HC, Verenice. She was agreeable to the plan.
[2021-01-31 12:38] VITALS: BP 158/68; PULSE 85; TEMP 99.4
--- NOTE | 2021-01-31 14:03 | NUR ---
The doc-to-doc call was done and the hospitalist reports that Dr. Dueñas is good to accept the patient today. The patient is to discharge today, 01/31, to [facility]. Transportation was scheduled at 1515, via [facility]. REGINALDO informed the patient, her RN, and her DPOA-HC (Verenice) of the time. They were all agreeable to the time. REGINALDO attempted to contact [facility] at [facility] to update on time. SW left her a voicemail. REGINALDO also read the EMS Transfer Consent Form outloud to the patient. The patient verbalized understanding and gave SW approval to sign the form on her behalf. No additional needs at this time.
--- NOTE | 2021-01-31 15:46 | NUR ---
Pt transferred to [facility] via EMS, report called to receiving nurse, questions answered.
== END 2021-01-31 15:48 | disposition swing bed (61) | DRG 466 ==
LOC: SURG 01-17 14:30 → ICU 01-24 05:00 → MEDICAL 01-24 14:09
PROVIDERS: Internal Medicine; Nurse Practitioner Family; Physician Assistant; Student in an Organized Health Care Education/Training Program; ADMIT Family Medicine
PROC: 5A09357 Assistance with Respiratory Ventilation, Less than 24 Consecutive Hours, Continuous Positive Airway Pressure (ICD-10-PCS; 2021-01-25)
PROC: 0SPC0JZ Removal of Synthetic Substitute from Right Knee Joint, Open Approach (ICD-10-PCS; principal; 2021-01-27)
PROC: 0SRC0J9 Replacement of Right Knee Joint with Synthetic Substitute, Cemented, Open Approach (ICD-10-PCS; 2021-01-27)
DX: T84.53XA Infection and inflammatory reaction due to internal right knee prosthesis, initial encounter (principal); J96.01 Acute respiratory failure with hypoxia; J18.1 Lobar pneumonia, unspecified organism; D62 Acute posthemorrhagic anemia; E87.1 Hypo-osmolality and hyponatremia; E87.2 Acidosis; N17.9 Acute kidney failure, unspecified; N39.0 Urinary tract infection, site not specified; Z68.41 Body mass index [BMI] 40.0-44.9, adult; M00.9 Pyogenic arthritis, unspecified; Z20.822 Contact with and (suspected) exposure to COVID-19; I12.9 Hypertensive chronic kidney disease with stage 1 through stage 4 chronic kidney disease, or unspecified chronic kidney disease; N18.9 Chronic kidney disease, unspecified; E03.9 Hypothyroidism, unspecified; R33.9 Retention of urine, unspecified; D50.9 Iron deficiency anemia, unspecified; D63.1 Anemia in chronic kidney disease; B37.2 Candidiasis of skin and nail; L89.152 Pressure ulcer of sacral region, stage 2; F32.9 Major depressive disorder, single episode, unspecified; E66.9 Obesity, unspecified; B96.5 Pseudomonas (aeruginosa) (mallei) (pseudomallei) as the cause of diseases classified elsewhere; B96.20 Unspecified Escherichia coli [E. coli] as the cause of diseases classified elsewhere; K59.00 Constipation, unspecified; Z79.891 Long term (current) use of opiate analgesic; Z96.652 Presence of left artificial knee joint; Z98.84 Bariatric surgery status; Z90.710 Acquired absence of both cervix and uterus; Z87.891 Personal history of nicotine dependence; Z88.8 Allergy status to other drugs, medicaments and biological substances
CPT/HCPCS: 99223-AI; 99232-AI; 99233-AI; 99239; A9284; C1713; C1776; J0456; J0692; J0696; J0878; J1170; J1200; J1450; J1644; J1756; J1940; J2270; J2704; J3010; J3260; J3370; J7030; J7050; L1832; P9016

== ENCOUNTER 2021-10-12 15:39 | Inpatient (IN) | payer MEDICARE, BC ==
[~2021-10-12] VITALS: Ht 164 cm; Wt 103.3 kg
[2021-10-12] VITALS (228 sets, daily range): BP systolic 108–112; BP diastolic 50–60; PULSE 78–85; TEMP 97.5–98; O2SAT 52–100
[~2021-10-12 15:39] MED LIST changes: +ASPIRIN 81M81 MG/TA2 PO; +B COMPLEX #11 TA1 PO; +CALCIUM CARBON650 M2 PO; +CUBICIN 500MG500 MG IV; +DESENEX TP; +DIFLUCAN 2200 MG/100 IV; +DULCOLAX STOOL100 MG PO; +ESTRACE0.5 MG PO; +FISH OIL 500 M1 EAC1 PO; +FLOMAX 0.40.4 MG/CAP PO; +GENTEAL MILD 1515 M1 OP; +HEPARIN SOD5000 U/ML SQ; +ISONIAZID PO; +LOVENOX 4040 MG/0.4 SQ; +MAG-OX 400400 MG/TAB PO; +MAXIPIME1 GM IV; +MELATIN 3 MG-11 TAB PO; +MIRALAX PA17 GM/Dose PO; +NORVASC 10MG10 MG PO; +OSCAL 500 TAB500 MG PO; +PERCOCET 325 MG1 TA2 PO; +RIFADIN300 MG PO; +RIFAMPIN PO; +SYNTHROID0.088 MG/T PO; +TUMS500 MG PO; +VITAMIN D31000 IU PO; +VTAMINC250TA
[2021-10-12] MEDS ORDERED: WELLBUTRIN XL300 M1 PO (16:19)
[2021-10-12] MEDS ORDERED: DICLOFENAC SOD2.5 ML TOP (16:20)
[2021-10-12] MEDS ORDERED: GARLIC100 MG PO (16:21)
[2021-10-12] MEDS ORDERED: NORCO 325 MG-7.1 TAB PO (16:23)
[2021-10-12] MEDS ORDERED: ATARAX 25MG25 MG/TAB PO (16:23)
[2021-10-12] MEDS ORDERED: MOBIC 7.5MG7.5 MG PO (16:25)
[2021-10-12] MEDS ORDERED: NYSTATIN POWDER15 GM TOP (16:27)
[2021-10-12] MEDS ORDERED: GENTEAL MILD 1515 M1 OP (16:28)
[2021-10-12] MEDS ORDERED: ZOCOR 20MG20 MG PO (16:29)
[2021-10-12] MEDS ORDERED: ZOLOFT 50MG50 MG PO (16:29)
[2021-10-12] MEDS ORDERED: TURMERIC500 MG PO (16:30)
[2021-10-12] MEDS ORDERED: AMBIEN 5MG TABLE5 MG PO (16:30)
[2021-10-12 21:39] LABS: BASO # 0.1 K/mm3 (0.0-0.2); BASO % 0.4 % (0.0-2.0); EOS # 0.3 K/mm3 (0.0-0.7); EOS % 2.5 % (0.0-4.0); GRAN # 9.8 K/mm3 (1.4-6.5); GRAN % 80.2 % (42.2-75.2); LYMPH # 1.2 K/mm3 (1.2-3.4); LYMPH % 9.9 % (20.0-51.0); MEAN CELL VOLUME 94 fl (80.0-100.0); MEAN CORPUSCULAR HGB CONC 32 g/dl (33.0-37.0); MEAN PLATELET VOLUME 9.4 fl (7.4-10.4); MONO # 0.7 K/mm3 (0.1-0.6); PLATELET COUNT 212 K/mm3 (130-400); RED BLOOD COUNT 2.49 M/mm3 (4.10-5.30); REDCELL DISTRIBUTION WIDTH-CV 16.7 % (11.5-14.5)
[2021-10-12 21:46] LABS: INR 1.1 (0.8-3.0); PROTHROMBIN TIME 12.2 SECONDS (9.7-12.8)
[2021-10-12 21:57] LABS: ALBUMIN 1.5 gm/dL (3.4-4.8); BILIRUBIN,TOTAL 0.2 mg/dL (0.2-1.2); CALCIUM 6.8 mg/dL (8.4-10.2); CREATININE, serum 3.94 mg/dL (0.57-1.11); PHOSPHOROUS 5.2 mg/dL (2.3-4.7); POTASSIUM 5.1 mmol/L (3.5-4.5); TOTAL PROTEIN 4.1 gm/dL (6.2-8.1)
[2021-10-12 22:01] LABS: HEMATOCRIT 23.4 % (37.0-47.0); HEMOGLOBIN 7.5 g/dl (12.5-16.0); MEAN CORPUSCULAR HEMOGLOBIN 30 pg (27-31)
[2021-10-12 22:05] LABS: MAGNESIUM 2.4 mg/dL (1.6-2.6)
[2021-10-12 22:13] LABS: TROPONIN-I 0.045 ng/mL (0.00-0.033)
[2021-10-12 22:35] LABS: ARTERIAL BLD GAS O2 SATURATION 98.3 % (92-100); ARTERIAL BLD GAS TCO2 CT 13.4; ARTERIAL BLOOD GAS BASE EXCESS -12.9 (-2-2); ARTERIAL BLOOD GAS HCO3 12.6 meq/L (22-26); ARTERIAL BLOOD GAS PCO2 27.4 mmHg (35-45); ARTERIAL BLOOD GAS pH 7.28 (7.35-7.45)
[2021-10-12 22:37] LABS: ARTERIAL BLOOD GAS PO2 128.6 mmHg (80-100)
[2021-10-13] VITALS (568 sets, daily range): BP systolic 104–147; BP diastolic 62–92; PULSE 67–88; TEMP 96.8–98; O2SAT 53–100
[2021-10-13 01:18] LABS: HEMATOCRIT 21.8 % (37.0-47.0); HEMOGLOBIN 7.2 g/dl (12.5-16.0)
[2021-10-13 04:01] LABS: MEAN CELL VOLUME 95 fl (80.0-100.0); MEAN CORPUSCULAR HGB CONC 32 g/dl (33.0-37.0); MEAN PLATELET VOLUME 9.9 fl (7.4-10.4); PLATELET COUNT 180 K/mm3 (130-400); RED BLOOD COUNT 2.27 M/mm3 (4.10-5.30); REDCELL DISTRIBUTION WIDTH-CV 16.9 % (11.5-14.5)
[2021-10-13 04:03] LABS: HEMATOCRIT 21.6 % (37.0-47.0); MEAN CORPUSCULAR HEMOGLOBIN 30 pg (27-31)
[2021-10-13 04:05] LABS: HEMOGLOBIN 6.9 g/dl (12.5-16.0)
[2021-10-13 04:32] LABS: CALCIUM 6.6 mg/dL (8.4-10.2); CREATININE, serum 3.8 mg/dL (0.57-1.11); POTASSIUM 4.5 mmol/L (3.5-4.5)
[2021-10-13 04:42] LABS: TROPONIN-I 6 HR POST INITIAL 0.034 ng/mL (0.00-0.033)
[2021-10-13 09:57] LABS: HEMATOCRIT 22.6 % (37.0-47.0); HEMOGLOBIN 7.6 g/dl (12.5-16.0)
[2021-10-13 16:20] LABS: HEMATOCRIT 24.6 % (37.0-47.0)
[2021-10-13 19:15] LABS: BUDDING YEAST Present (NOT PRESENT); MUCOUS Present (NOT PRESENT); PH 5 (5-8); URINE APPEARANCE Cloudy (CLEAR/HAZY); URINE BACTERIA Rare /hpf (NONE SEEN); URINE BILIRUBIN Negative (NEGATIVE); URINE BLOOD Negative (NEGATIVE); URINE COLOR Yellow (YELLOW); URINE GLUCOSE Negative (NEGATIVE); URINE KETONE Trace (NEGATIVE); URINE LEUKOCYTE ESTERASE 3+ (NEGATIVE); URINE NITRATE Negative (NEGATIVE); URINE PROTEIN(semi-quant) 1+ (NEGATIVE); URINE RBC 20-50 /hpf (0-2); URINE UROBILINOGEN Negative (NEGATIVE)
[2021-10-13 19:23] LABS: COLLECTION METHOD CLEAN CATCH
[2021-10-14] VITALS (446 sets, daily range): BP systolic 72–128; BP diastolic 26–109; PULSE 70–106; TEMP 96.6–98.1; O2SAT 56–100
[2021-10-14 04:06] LABS: BASO # 0.1 K/mm3 (0.0-0.2); BASO % 0.5 % (0.0-2.0); EOS # 0.9 K/mm3 (0.0-0.7); EOS % 8.6 % (0.0-4.0); GRAN # 7.3 K/mm3 (1.4-6.5); GRAN % 67.8 % (42.2-75.2); LYMPH # 1.6 K/mm3 (1.2-3.4); LYMPH % 14.9 % (20.0-51.0); MEAN CELL VOLUME 95 fl (80.0-100.0); MEAN CORPUSCULAR HGB CONC 33 g/dl (33.0-37.0); MEAN PLATELET VOLUME 9.6 fl (7.4-10.4); MONO # 0.8 K/mm3 (0.1-0.6); MONO % 7.2 % (1.7-9.3); PLATELET COUNT 155 K/mm3 (130-400); RED BLOOD COUNT 2.19 M/mm3 (4.10-5.30); REDCELL DISTRIBUTION WIDTH-CV 16.4 % (11.5-14.5)
[2021-10-14 04:15] LABS: CALCIUM 6.5 mg/dL (8.4-10.2); CREATININE, serum 3.85 mg/dL (0.57-1.11); POTASSIUM 3.9 mmol/L (3.5-4.5)
[2021-10-14 04:26] LABS: HEMATOCRIT 20.8 % (37.0-47.0); MEAN CORPUSCULAR HEMOGLOBIN 32 pg (27-31)
[2021-10-14 04:27] LABS: HEMOGLOBIN 6.9 g/dl (12.5-16.0)
[2021-10-14 10:39] LABS: IRON,SERUM 72 ug/dL (50-175)
[2021-10-14 11:52] LABS: HEMATOCRIT 19.7 % (37.0-47.0); HEMOGLOBIN 6.5 g/dl (12.5-16.0)
== END 2021-10-14 21:23 | disposition short-term general hospital (02) | DRG 378 ==
LOC: IMCU 15:39 → ICU 16:18
PROVIDERS: Internal Medicine; Internal Medicine Gastroenterology; Nurse Practitioner Family; Physician Assistant; Registered Nurse; ADMIT Internal Medicine
PROC: 05HN33Z Insertion of Infusion Device into Left Internal Jugular Vein, Percutaneous Approach (ICD-10-PCS; principal; 2021-10-12)
PROC: 0DJD8ZZ Inspection of Lower Intestinal Tract, Via Natural or Artificial Opening Endoscopic (ICD-10-PCS; 2021-10-13)
PROC: 0DJ08ZZ Inspection of Upper Intestinal Tract, Via Natural or Artificial Opening Endoscopic (ICD-10-PCS; 2021-10-13 12:00)
DX: K92.2 Gastrointestinal hemorrhage, unspecified (principal); N39.0 Urinary tract infection, site not specified; D62 Acute posthemorrhagic anemia; E87.2 Acidosis; N17.9 Acute kidney failure, unspecified; I12.9 Hypertensive chronic kidney disease with stage 1 through stage 4 chronic kidney disease, or unspecified chronic kidney disease; N18.9 Chronic kidney disease, unspecified; E11.22 Type 2 diabetes mellitus with diabetic chronic kidney disease; E78.5 Hyperlipidemia, unspecified; K58.9 Irritable bowel syndrome, unspecified; E03.9 Hypothyroidism, unspecified; F32.A Depression, unspecified; M19.90 Unspecified osteoarthritis, unspecified site; L89.152 Pressure ulcer of sacral region, stage 2; E87.5 Hyperkalemia; I45.10 Unspecified right bundle-branch block; E11.649 Type 2 diabetes mellitus with hypoglycemia without coma; S00.93XA Contusion of unspecified part of head, initial encounter; K57.30 Diverticulosis of large intestine without perforation or abscess without bleeding; K64.1 Second degree hemorrhoids; E87.70 Fluid overload, unspecified; I95.9 Hypotension, unspecified; I34.0 Nonrheumatic mitral (valve) insufficiency; T39.395A Adverse effect of other nonsteroidal anti-inflammatory drugs [NSAID], initial encounter; Z96.652 Presence of left artificial knee joint; Z20.822 Contact with and (suspected) exposure to COVID-19; W19.XXXA Unspecified fall, initial encounter; Y93.89 Activity, other specified; Y92.9 Unspecified place or not applicable; Z79.01 Long term (current) use of anticoagulants; Z79.82 Long term (current) use of aspirin; Z87.891 Personal history of nicotine dependence; Z23 Encounter for immunization
CPT/HCPCS: 99223-AI; 99233-AI; 99239; A9560; C9113; J0696; J1756; J2370; J2597; J2704; J7060; P9016